=== PATIENT | female | born 1995 | race African-American/Black ===

== ENCOUNTER 2016-04-08 23:16 | Emergency (ER) | payer OTHER ==
[~2016-04-08] VITALS: Ht 170.2 cm; Wt 111.1 kg
[~2016-04-08 23:16] MED LIST: BCPILLS PO; ONDA4TAB10 SL
[2016-04-08 23:29] VITALS: TEMP 37.5; Ht 170.2 cm; Wt 111.1 kg
--- NOTE | 2016-04-08 23:58 | EMERGENCY ROOM VISIT NOTE ---
History Report prepared by Jesi: Mariusz Blevins Under the Supervision of: Dr. Maureen Gutierrez D.O. First contact with patient: 23:44 Chief Complaint: OTHER COMPLAINT Stated Complaint: PERSONAL BUT URGENT,REFUSED TO TELL ME History of Present Illness The patient is a 20 year old female who presents to the Emergency Room requesting a rapid HIV test. The patient recently found out that her boyfriend of many years was HIV positive. He had a positive test last week. The patient herself is completely asymptomatic. She denies any leg cramping, swelling, or any rashes. She receives regular gynecologic care and is currently on her period. The patient denies any health problems. The patient is a [employer] student and her significant other is a college student at another school. The patient was last sexually active weeks ago, however they have had unprotected sex. Source of History: patient Onset: tonight Position: other (general) Quality: other (HIV test request) Timing: other (rapid) Associated Symptoms: No rash Review of Systems The patient denies any symptoms, and is only here for HIV testing. Past Medical & Surgical Medical Problems: (1) Folliculitis (2) Gastroenteritis (3) Pilonidal cyst with abscess Family History Cancer Diabetes mellitus Hypertension Social History Smoking Status: Never Smoker Alcohol Use: none Drug Use: none Marital Status: in relationship Housing Status: lives with roommate Occupation Status: [employer] student Current/Historical Medications Scheduled Control Pills ( Control Pills), 1 TAB PO DAILY Allergies Coded Allergies: No Known Allergies (Unverified , 04/08/16) Physical Exam Vital Signs Date Time Temp Pulse Resp B/P Pulse Ox O2 Delivery O2 Flow Rate FiO2 04/09/16 03:12 80 18 158/100 100 04/08/16 23:29 37.5 93 18 156/106 100 Room Air Physical Exam HEENT: Head - normocephalic and atraumatic Pupils are equal, round, and reactive to light. Extraocular eye muscles are intact, and sclera are anicteric. Nose - moist nasal mucosa without discharge. Mouth - moist buccal mucosa. Oropharynx is nonerythematous and there is no tonsillar exudate or edema noted. Neck: Supple; no JVD, nuchal rigidity, cervical lymphadenopathy. Heart: Regular rate and rhythm. There is a normal S1 and S2 with no murmurs, clicks, or gallops appreciated. Lungs: Clear to auscultation bilaterally with no wheezes, rales, or rhonchi. Abdomen: Soft, completely nontender, nondistended, with good bowel sounds. There are no palpable pulsatile masses or hepatosplenomegaly. There is no guarding, rigidity, or rebound noted. Extremities: No evidence of cyanosis, clubbing, or edema. There are easily palpable peripheral pulses. Skin: warm and dry with good turgor and no rashes. Medical Decision & Procedures Laboratory Results Test 04/09/16 00:08 HIV (1&2) Ab and P24 Ag, 4th Gener NEG (NEG) Laboratory results per my review. ED Course 2348: Past medical records reviewed. The patient was evaluated in room C12b. A complete history and physical exam was performed. Pretest counseling was performed. Labs were drawn. 0300: The patient's HIV test came back negative. I discussed the finding with her. Posttest counseling was provided. She verbalized understanding and agreement of the treatment plan. The patient is ready for discharge. Medical Decision The patient is a 20 year old female who presents to the ED for a rapid HIV test. HIV test was negative. Impression Primary Impression: Encounter for HIV (human immunodeficiency virus) test Scribe Attestation The scribe's documentation has been prepared under my direction and personally reviewed by me in its entirety. I confirm that the note above accurately reflects all work, treatment, procedures, and medical decision making performed by me. Departure Information Dispostion Home / Self-Care Referrals No Doctor, Assigned (PCP) Forms HOME CARE DOCUMENTATION FORM, IMPORTANT VISIT INFORMATION, WORK / SCHOOL INSTRUCTIONS Patient Instructions My [facility] Additional Instructions Please follow up with the department of health for re-testing in one month. You must have protected sex.
[2016-04-09 03:12] VITALS: BP 158/100; PULSE 80; O2SAT 100
== END 2016-04-09 03:12 | disposition home or self-care (01) ==
LOC: C.EDB 23:17 → C.EDC 04-09 03:12
DX: Z20.6 Contact with and (suspected) exposure to human immunodeficiency virus [HIV] (principal); Z83.3 Family history of diabetes mellitus; Z82.49 Family history of ischemic heart disease and other diseases of the circulatory system

== ENCOUNTER → 2016-05-29 | Outpatient (CLI) | payer OTHER ==
[~2016-05-29] MED LIST changes: -ONDA4TAB10 SL
== END | disposition home or self-care (01) ==
LOC: C.LABSPEC 13:31
PROVIDERS: ATTEND Physician Assistant
DX: N89.8 Other specified noninflammatory disorders of vagina (principal)

== ENCOUNTER → 2017-02-21 | Outpatient (CLI) | payer OTHER | END | disposition home or self-care (01) | LOC: C.PAPS 16:33 | PROVIDERS: ATTEND Physician Assistant | DX: Z01.419 Encounter for gynecological examination (general) (routine) without abnormal findings (principal) ==

== ENCOUNTER → 2017-02-21 | Outpatient (CLI) | payer OTHER | END | disposition home or self-care (01) | LOC: C.LABSPEC 14:59 | PROVIDERS: ATTEND Physician Assistant | DX: Z01.419 Encounter for gynecological examination (general) (routine) without abnormal findings (principal) ==